=== PATIENT | male | born 1960 | race Caucasian/White ===

== ENCOUNTER 2020-06-30 14:10 | Inpatient (IN) | payer OTHER ==
[2020-06-30 18:40] VITALS: BMI 23.0
--- NOTE | 2020-06-30 18:51 | HP ---
"CIWA Score Nausea/Vomitin-No Nausea/No Vomiting Muscle Tremors: None Anxiety: 4-Mod. Anxious/Guarded Agitation: 3 Paroxysmal Sweats: 3 (Increased facial moisture) Orientation: 1-Uncertain about Date Tacttile Disturbances: 0-None Auditory Disturbances: 1-Very Mild (Whispery voices) Visual Disturbances: 1-Very Mild Sensitivity Headache: 0-None Present CIWA-Ar Total Score: 13 - Admission Criteria OASAS Guidelines: Admission for Medically Managed Detox: Requires at least one of the followin. CIWA greater than 12 2. Seizures within the past 24 hours 3. Delirium tremens within the past 24 hours 4. Hallucinations within the past 24 hours 5. Acute intervention needed for co occurring medical disorder 6. Acute intervention needed for co occurring psychiatric disorder 7. Severe withdrawal that cannot be handled at a lower level of care (continued vomiting, continued diarrhea, abnormal vital signs) requiring intravenous medication and/or fluids 8. Patient presents the following: CIWA greater than 12 Admission Criteria Met: Admission criteria met Admission ROS S - [facility] Chief Complaint: Here to try to stop using heroin, cocaine and drinking. Allergies/Adverse Reactions: Allergies Allergy/AdvReac Type Severity Reaction Status Date / Time No Known Allergies Allergy Verified 06/30/20 21:12 History of Present Illness: 60 yo presents w/ alcohol withdrawal seeking detox. First admission to [facility]. PARISH: 0.0 UTox: + SONJA/FEN/MOP/MTD Denies overdoses or seizures. Heroin use began at age 25. Currently using 4 bags/day/IV. Last used 06/29/20. On methadone 140 mg PO Daily. On VIP MMTP. LDM today. Denies sharing needles or works. Has a Narcan kit @ home and someone knows how to use. Alcohol use began at age 60. Has been drinking 4-6 16 oz beers/day x 3 months. Last drink about 9 a.m. Cocaine use began at age 59. Currently uses 4-5 $20 /day. Uses IV. Nicotine use began at age 27. Smokes 1 PPD. PMHx: Asthma - last exacerbation 2 weeks ago - on albuterol MDI; HTN - on Lisinopril; Slow heart beat. Heart Murmur. Elevated lipids; Prostate problems (R) ankle pain (uses a cane) MHHx: Occ hears voices - whispers. Anxiety/Panic attacks. Insomnia. Depression. - Does not see a MH provider. Denies thoughts of harming self or others. SHx: Undomiciled. Unemployed. Denies legal issues. Search Terms: Luis A Chavez, 1960 Search Date: 06/30/2020 20:41:17 PM The Drug Utilization Report below displays all of the controlled substance prescriptions, if any, that your patient has filled in the last twelve months. The information displayed on this report is compiled from pharmacy submissions to the Department, and accurately reflects the information as submitted by the pharmacies. This report was requested by: Danni Quintero | Reference #: [id number] There are no results for the search terms that you entered. Exam Limitations: No Limitations - Ebola screening Have you traveled outside of the country in the last 21 days: No (Hx COVID - 3 months ago) Have you had contact with anyone from an Ebola affected area: No Have you been sick,other than usual withdrawal symptoms: No Do you have a fever: No - Review of Systems Constitutional: Diaphoresis, Changes in sleep (Difficult falling asleep - no meds), Unintentional Wgt. Loss EENT: reports: Blurred Vision, Dental Problems (Broken teeth - chews and swallows ok.) Respiratory: reports: SOB with Exertion Cardiac: reports: Irregular Heart Rate (States told had irregular heart beat - slow heart beat.) GI: reports: Constipated (Last BM ) : reports: Other (States has prostate problems. Difficulty starting flow - encouraged to f/u when discharged. Verbalizes an understanding.) Musculoskeletal: reports: Back Pain (Upper and mid-back triggered by certain movements.), Joint Pain ((R) ankle pain - hx fracture - 2 yrs ago) Integumentary: reports: No Symptoms Reported Neuro: reports: No Symptoms reported Endocrine: reports: Increased Thirst Hematology: reports: No Symptoms Reported Psychiatric: reports: Judgement Intact, Agitated, Anxious (Occ panic attacks.), Depressed ( Denies thoughts of harming self or others.) Patient History - PPD History Previous Implant?: Yes Documented Results: Negative w/o proof Implanted On Prior [facility] Admission?: No PPD to be Administered?: Yes - Smoking Cessation Smoking history: Current every day smoker Have you smoked in the past 12 months: Yes Aproximately how many cigarettes per day: 20 Hx Chewing Tobacco Use: No Initiated information on smoking cessation: Yes 'Breaking Loose' booklet given: 06/30/20 - Substance & Tx. History Hx Alcohol Use: Yes Hx Substance Use: Yes Substance Use Type: Alcohol, Cocaine, Heroin Hx Substance Use Treatment: Yes (detox, rehab, Currently on MMTP) - Substances abused Heroin Substance route: Injection Frequency: Daily Amount used: 4 to 5 bags Age of first use: 28 Date of last use: 06/30/20 Cocaine Substance route: Injection Frequency: Daily Amount used: 3 to 4 20 ' Age of first use: 56 Date of last use: 06/29/20 Alcohol Substance route: Oral Frequency: Daily Amount used: 5 to 6 cans of beer Age of first use: 59 Date of last use: 06/30/20 Admission Physical Exam [facility] - Vital Signs Vital Signs: Vital Signs - 24 hr 06/30/20 17:28 Temperature 97.7 F Pulse Rate 45 L Respiratory 16 Rate Blood Pressure 111/66 - Physical General Appearance: Yes: Nourished, Mild Distress, Sweating (Increased facial moisture), Anxious HEENTM: Yes: EOMI, Hearing grossly Normal, Normocephalic, Normal Voice, STEPHANIE (Pupils = 2 mm), Pharynx Normal Respiratory: Yes: Lungs Clear (Pulse Ox = 99%), Normal Breath Sounds, No Respiratory Distress Neck: Yes: No masses,lesions,Nodules, Supple Breast: Yes: Breast Exam Deferred Cardiology: Yes: S1, S2, Bradycardia (HR: 42. Denies CP/SOB/Vertigo/Edema) Abdominal: Yes: Normal Bowel Sounds, Non Tender, Flat, Soft Genitourinary: Yes: Within Normal Limits Back: Yes: Normal Inspection Musculoskeletal: Yes: full range of Motion, Gait Steady, Joint swelling ((R) ankle w/ enlarged outer malleolus) Extremities: Yes: Normal Capillary Refill Neurological: Yes: explosive technician II-XII NML intact, Alert, Motor Strength 5/5 Integumentary: Yes: Normal Color, Warm, Moist (Increased facial moisture), Track Duran (Multiple track duran bothe antecubital areas w/o increased warmth or erythema) Lymphatic: Yes: Within Normal Limits - Diagnostic (1) Alcohol dependence with withdrawal, uncomplicated Current Visit: Yes Status: Acute (2) Methadone maintenance therapy patient Current Visit: Yes Status: Chronic Comment: On methadone maintenance - consider dose decrease because of prolonged QTc Continues to uses illicit opiates IV (3) IVDU (intravenous drug user) Current Visit: Yes Status: Chronic (4) Prolonged Q-T interval on ECG Current Visit: Yes Status: Acute (5) Cocaine dependence, uncomplicated Current Visit: Yes Status: Chronic (6) Nicotine dependence, unspecified, uncomplicated Current Visit: Yes Status: Chronic Qualifiers: Nicotine product type: cigarettes Qualified Code(s): F17.210 - Nicotine dependence, cigarettes, uncomplicated (7) History of asthma Current Visit: Yes Status: Chronic (8) HTN (hypertension) Current Visit: Yes Status: Chronic Qualifiers: Hypertension type: unspecified Qualified Code(s): I10 - Essential (primary) hypertension (9) H/O elevated lipids Current Visit: Yes Status: Chronic (10) History of fracture of ankle Current Visit: Yes Status: Chronic Comment: (R) ankle tenderness (11) Bradycardia Current Visit: Yes Status: Chronic Comment: w/o associated symptoms Cleared for Admission [facility] - Detox or Rehab [facility] Level of Care: Medically Managed Detox Regimen/Protocol: Librium Claeared for Rehab Admission: No Inpatient Rehab Admission - Rehab Decision to Admit Inpatient rehab admission?: No"
[2020-06-30] MEDS ORDERED: METHOCARBAMOL 500 MG TABLET PO PRN (21:21)
[2020-06-30] MEDS ORDERED: ACETAMINOPHEN 325 MG TABLET (FP) PO PRN ×2 (21:21)
[2020-06-30] MEDS ORDERED: IBUPROFEN 400 MG TABLET (FP) PO PRN (21:21)
[2020-06-30] MEDS ORDERED: NICOTINE POLACRILEX 2 MG GUM BUC PRN (21:21)
[2020-06-30] MEDS ORDERED: MAGNESIUM HYDROX 2400MG/30ML ORAL SUSPENSION 30 ML CUP PO PRN (21:21)
[2020-06-30] MEDS ORDERED: ONDANSETRON *ODT* 4 MG TABLET SL ONE (21:21)
[2020-06-30] MEDS ORDERED: chlordiazePOXIDE HCL 10 MG CAPSULE PO PRN (21:21)
[2020-06-30] MEDS ORDERED: BISMUTH SUBSALICYLATE 524 MG/30 ML UD PO PRN (21:21)
[2020-06-30] MEDS ORDERED: MENTHOL/PHENOL 1 EACH UD MM PRN (21:21)
[2020-06-30] MEDS ORDERED: MAGNESIUM CITRATE 300 ML BOTTLE PO PRN (21:21)
[2020-06-30] MEDS: MELATONIN 5 MG TABLETS PO SCH (22:39)
[2020-06-30] MEDS: THIAMINE HCL 100 MG TABLET (FP) PO SCH (22:40)
[2020-06-30] MEDS: chlordiazePOXIDE HCL 25 MG CAPSULE PO SCH (22:40)
[2020-07-01] MEDS: chlordiazePOXIDE HCL 25 MG CAPSULE PO SCH ×3 (06:06→22:35)
[2020-07-01] MEDS ORDERED: METHADONE 120 MG, METHADONE 20 MG PO ONE (09:53)
[2020-07-01] MEDS ORDERED: METHADONE HCL 10 MG TABLET PO ONE (09:53)
[2020-07-01] MEDS ORDERED: METHADONE HCL 40 MG DISPERSABLE TABLET ONE (11:08)
[2020-07-01] MEDS ORDERED: METHADONE HCL 10 MG TABLET ONE (11:08)
[2020-07-01] MEDS: BUDESONIDE/FORMETEROL FUMARATE 160/4.5 mcg INHALER IH SCH ×2 (11:09→22:35)
[2020-07-01] MEDS: PRENATAL VITAMINS W/ FOLIC ACID TABLET (FP) PO SCH (11:10)
[2020-07-01] MEDS: LISINOPRIL 20 MG TABLET (FP) PO SCH (11:10)
[2020-07-01] MEDS: NICOTINE 14 MG/24 HOURS TOPICAL PATCH TD SCH (11:10)
--- NOTE | 2020-07-01 11:27 | PN ---
S CIWA - CIWA Score Nausea/Vomitin-No Nausea/No Vomiting Muscle Tremors: 3 Anxiety: 2 Agitation: 2 Paroxysmal Sweats: 2 Orientation: 0-Oriented Tacttile Disturbances: 0-None Auditory Disturbances: 0-None Visual Disturbances: 0-None Headache: 0-None Present CIWA-Ar Total Score: 9 BHS Progress Note (SOAP) Subjective: irritable sweats interrupted sleep Objective: 07/01/20 11:26 Vital Signs Temperature 97.1 F L 07/01/20 05:34 Pulse Rate 49 L 07/01/20 05:34 Respiratory Rate 20 07/01/20 05:34 Blood Pressure 143/60 07/01/20 05:34 O2 Sat by Pulse Oximetry (%) 98 07/01/20 05:34 labs pending aaox3 ambulating no acute distress Assessment: 07/01/20 11:27 withdrawals Plan: continue detox pending labs
[2020-07-01 11:57] LABS: HEMATOCRIT 39.6 % (35.4-49); HEMOGLOBIN 13.1 GM/dL (11.7-16.9); MCH 29.4 pg (25.7-33.7); MEAN CELL VOLUME 89.3 fl (80-96); MEAN PLT VOLUME 9.7 fl (7.5-11.1); PLATELET COUNT 161 K/MM3 (134-434); RBC 4.44 M/mm3 (4.00-5.60); RDW 13.4 % (11.9-15.9); WHITE BLOOD COUNT 4.6 K/mm3 (4.0-10.0)
[2020-07-01 12:11] LABS: BILIRUBIN,TOTAL 0.3 mg/dL (0.2-1); BLOOD UREA NITROGEN 16.2 mg/dL (7-18); CALCIUM 8.7 mg/dL (8.5-10.1); POTASSIUM 3.8 mmol/L (3.5-5.1); TOT PROT 6.5 g/dl (6.4-8.2)
--- NOTE | 2020-07-01 14:56 | EKG ---
Test Reason : Blood Pressure : / mmHG Vent. Rate : 040 BPM Atrial Rate : 040 BPM P-R Int : 166 ms QRS Dur : 094 ms QT Int : 524 ms P-R-T Axes : 055 -01 055 degrees QTc Int : 427 ms MARKED SINUS BRADYCARDIA ABNORMAL ECG NO PREVIOUS ECGS AVAILABLE Confirmed by MENDOZA KIDD MD ([id number]) on 07/01/2020 2:56:27 PM Referred By: Confirmed By:MENDOZA KIDD MD
[2020-07-01] MEDS: MAG HYDROX/AL HYDROX/SIMETH 30 ML UNIT-DOSE CUP PO PRN (19:59)
[2020-07-01] MEDS: ALBUTEROL SO4 HFA INHALER IH PRN (20:14)
[2020-07-01] MEDS: MELATONIN 5 MG TABLETS PO SCH (22:35)
[2020-07-01] MEDS: THIAMINE HCL 100 MG TABLET (FP) PO SCH (22:35)
[2020-07-01] MEDS: ATORVASTATIN CA 10 MG TABLET (FP) PO SCH (22:35)
[2020-07-02] MEDS ORDERED: METHADONE HCL 10 MG TABLET ONE (04:11)
[2020-07-02] MEDS ORDERED: METHADONE HCL 40 MG DISPERSABLE TABLET ONE (04:12)
[2020-07-02] MEDS: chlordiazePOXIDE 5 MG CAPSULE PO SCH ×3 (05:38→22:10)
[2020-07-02] MEDS: METHADONE 120 MG, METHADONE 20 MG PO SCH (05:38)
[2020-07-02] MEDS: ALBUTEROL SO4 HFA INHALER IH PRN ×2 (05:41→22:13)
[2020-07-02] MEDS ORDERED: METHADONE HCL 40 MG DISPERSABLE TABLET PO SCH (06:00)
--- NOTE | 2020-07-02 10:25 | PN ---
[facility] CIWA - CIWA Score Nausea/Vomitin-No Nausea/No Vomiting Muscle Tremors: 1-None Visible, but [place] Anxiety: 1-Mildly Anxious Agitation: 1-Slight > Activity Paroxysmal Sweats: 1-Minimal Palms Moist Orientation: 0-Oriented Tacttile Disturbances: 0-None Auditory Disturbances: 0-None Visual Disturbances: 0-None Headache: 0-None Present CIWA-Ar Total Score: 4 BHS Progress Note (SOAP) Subjective: poor appetite i want ensure restless Objective: 07/02/20 10:25 Vital Signs Temperature 97.3 F L 07/02/20 05:30 Pulse Rate 43 L 07/02/20 05:30 Respiratory Rate 20 07/02/20 05:30 Blood Pressure 136/75 07/02/20 05:30 O2 Sat by Pulse Oximetry (%) 97 07/02/20 05:30 Laboratory Tests 07/01/20 07/01/20 07/01/20 08:05 08:05 08:05 WBC 4.6 RBC 4.44 Hgb 13.1 Hct 39.6 MCV 89.3 MCH 29.4 MCHC 33.0 RDW 13.4 Plt Count 161 MPV 9.7 Sodium 141 Potassium 3.8 Chloride 108 H Carbon Dioxide 28 Anion Gap 5 L BUN 16.2 Creatinine 1.0 Est GFR (CKD-EPI)AfAm 95.73 Est GFR (CKD-EPI)NonAf 82.60 Random Glucose 126 H Calcium 8.7 Total Bilirubin 0.3 AST 35 ALT 30 Alkaline Phosphatase 68 Total Protein 6.5 Albumin 3.0 L Syphilis Serology Non-reactive aaox3 ambulating no acute distress Assessment: 07/02/20 10:25 withdrawals Plan: continue detox ensure plus BID
[2020-07-02] MEDS: NICOTINE 14 MG/24 HOURS TOPICAL PATCH TD SCH (10:41)
[2020-07-02] MEDS: PRENATAL VITAMINS W/ FOLIC ACID TABLET (FP) PO SCH (10:42)
[2020-07-02] MEDS: LISINOPRIL 20 MG TABLET (FP) PO SCH (10:42)
[2020-07-02] MEDS: BUDESONIDE/FORMETEROL FUMARATE 160/4.5 mcg INHALER IH SCH ×2 (10:42→23:02)
[2020-07-02] MEDS: MAG HYDROX/AL HYDROX/SIMETH 30 ML UNIT-DOSE CUP PO PRN (18:36)
[2020-07-02] MEDS: ATORVASTATIN CA 10 MG TABLET (FP) PO SCH (22:10)
[2020-07-02] MEDS: MELATONIN 5 MG TABLETS PO SCH (22:11)
[2020-07-02] MEDS: THIAMINE HCL 100 MG TABLET (FP) PO SCH (22:11)
[2020-07-03] MEDS ORDERED: chlordiazePOXIDE HCL 10 MG CAPSULE PO PRN
[2020-07-03] MEDS ORDERED: METHADONE HCL 40 MG DISPERSABLE TABLET ONE (04:56)
[2020-07-03] MEDS ORDERED: METHADONE HCL 10 MG TABLET ONE (04:56)
[2020-07-03] MEDS: chlordiazePOXIDE HCL 10 MG CAPSULE PO SCH ×3 (05:37→21:56)
[2020-07-03] MEDS: METHADONE 120 MG, METHADONE 20 MG PO SCH (05:40)
[2020-07-03] MEDS: BUDESONIDE/FORMETEROL FUMARATE 160/4.5 mcg INHALER IH SCH ×2 (10:51→22:00)
[2020-07-03] MEDS: PRENATAL VITAMINS W/ FOLIC ACID TABLET (FP) PO SCH (10:51)
[2020-07-03] MEDS: NICOTINE 14 MG/24 HOURS TOPICAL PATCH TD SCH (10:51)
[2020-07-03] MEDS: LISINOPRIL 20 MG TABLET (FP) PO SCH (10:51)
--- NOTE | 2020-07-03 12:56 | PN ---
[facility] CIWA - CIWA Score Nausea/Vomitin-No Nausea/No Vomiting Muscle Tremors: None Anxiety: 1-Mildly Anxious Agitation: 0-Normal Activity Paroxysmal Sweats: 2 Orientation: 0-Oriented Tacttile Disturbances: 0-None Auditory Disturbances: 0-None Visual Disturbances: 0-None Headache: 0-None Present CIWA-Ar Total Score: 3 BHS Progress Note (SOAP) Subjective: Complaints of mild sweating and anxiety. Objective: 07/03/20 12:54 Vital Signs 07/03/20 07/03/20 05:32 09:10 Temperature 97.3 F L 98.6 F Pulse Rate 56 L 50 L Respiratory 18 18 Rate Blood Pressure 170/74 147/77 O2 Sat by Pulse 98 98 Oximetry (%) Laboratory Last Values WBC 4.6 K/mm3 (4.0-10.0) 07/01/20 08:05 RBC 4.44 M/mm3 (4.00-5.60) 07/01/20 08:05 Hgb 13.1 GM/dL (11.7-16.9) 07/01/20 08:05 Hct 39.6 % (35.4-49) 07/01/20 08:05 MCV 89.3 fl (80-96) 07/01/20 08:05 MCH 29.4 pg (25.7-33.7) 07/01/20 08:05 MCHC 33.0 g/dl (32.0-35.9) 07/01/20 08:05 RDW 13.4 % (11.9-15.9) 07/01/20 08:05 Plt Count 161 K/MM3 (134-434) 07/01/20 08:05 MPV 9.7 fl (7.5-11.1) 07/01/20 08:05 Sodium 141 mmol/L (136-145) 07/01/20 08:05 Potassium 3.8 mmol/L (3.5-5.1) 07/01/20 08:05 Chloride 108 mmol/L (98-107) H 07/01/20 08:05 Carbon Dioxide 28 mmol/L (21-32) 07/01/20 08:05 Anion Gap 5 MMOL/L (8-16) L 07/01/20 08:05 BUN 16.2 mg/dL (7-18) 07/01/20 08:05 Creatinine 1.0 mg/dL (0.55-1.3) 07/01/20 08:05 Est GFR (CKD-EPI)AfAm 95.73 07/01/20 08:05 Est GFR (CKD-EPI)NonAf 82.60 07/01/20 08:05 Random Glucose 126 mg/dL (74-106) H 07/01/20 08:05 Calcium 8.7 mg/dL (8.5-10.1) 07/01/20 08:05 Total Bilirubin 0.3 mg/dL (0.2-1) 07/01/20 08:05 AST 35 U/L (15-37) 07/01/20 08:05 ALT 30 U/L (13-61) 07/01/20 08:05 Alkaline Phosphatase 68 U/L (45-117) 07/01/20 08:05 Total Protein 6.5 g/dl (6.4-8.2) 07/01/20 08:05 Albumin 3.0 g/dl (3.4-5.0) L 07/01/20 08:05 Syphilis Serology Non-reactive (NONREACTIVE) 07/01/20 08:05 COVID-19 ([facility]) Not detected (Not Detected) 06/30/20 21:45 Labs noted. Assessment: 07/03/20 12:54 Alert and oriented x3, in no acute respiratory distress. Full ROM, ambulating in hallway with cane. Skin warm to touch with no lesions noted. Mild withdrawal symptoms. Plan: Continue detox protocol D/C in AM
[2020-07-03] MEDS: THIAMINE HCL 100 MG TABLET (FP) PO SCH (21:56)
[2020-07-03] MEDS: ATORVASTATIN CA 10 MG TABLET (FP) PO SCH (21:56)
[2020-07-03] MEDS: MELATONIN 5 MG TABLETS PO SCH (21:56)
[2020-07-04] MEDS ORDERED: METHADONE HCL 10 MG TABLET ONE (03:31)
[2020-07-04] MEDS ORDERED: METHADONE HCL 40 MG DISPERSABLE TABLET ONE (03:32)
[2020-07-04] MEDS ORDERED: chlordiazePOXIDE HCL 10 MG CAPSULE PO ONE (05:00)
[2020-07-04] MEDS: METHADONE 120 MG, METHADONE 20 MG PO SCH (05:43)
[2020-07-04] MEDS ORDERED: MASKS NR ONE (07:49)
[2020-07-04] MEDS: BUDESONIDE/FORMETEROL FUMARATE 160/4.5 mcg INHALER IH SCH (10:19)
[2020-07-04] MEDS: LISINOPRIL 20 MG TABLET (FP) PO SCH (10:19)
[2020-07-04] MEDS: PRENATAL VITAMINS W/ FOLIC ACID TABLET (FP) PO SCH (10:19)
[2020-07-04] MEDS: NICOTINE 14 MG/24 HOURS TOPICAL PATCH TD SCH (10:19)
--- NOTE | 2020-07-04 13:55 | DS ---
[facility] Detox Discharge Summary Admission Date: 06/30/20 - History Present History: Alcohol Dependence, Cocaine Dependence - Physical Exam Results Vital Signs: Vital Signs Temperature 97.3 F L 07/04/20 08:45 Pulse Rate 51 L 07/04/20 08:45 Respiratory Rate 16 07/04/20 08:45 Blood Pressure 157/72 07/04/20 08:45 O2 Sat by Pulse Oximetry (%) 97 07/04/20 08:45 Ambulatory Orders Atorvastatin Calcium 10 mg PO DAILY 06/30/20 Multivit,Calc,Mins/Iron/Folic [Therapeutic-M Tablet] 1 tablet PO DAILY 06/30/20 Albuterol Sulfate Inhaler - [Ventolin HFA Inhaler -] 2 inhaler PO Q4HWA PRN #1 inhaler 07/04/20 Budesonide/Formeterol Fumarate [SYMBICORT 160/4.5mcg -] 1 inhaler PO BID #1 inhaler 07/04/20 Lisinopril [Prinivil -] 40 mg PO DAILY #14 tablet 07/04/20 Laboratory Tests 06/30/20 07/01/20 07/01/20 21:45 08:05 08:05 WBC 4.6 RBC 4.44 Hgb 13.1 Hct 39.6 MCV 89.3 MCH 29.4 MCHC 33.0 RDW 13.4 Plt Count 161 MPV 9.7 Sodium Potassium Chloride Carbon Dioxide Anion Gap BUN Creatinine Est GFR (CKD-EPI)AfAm Est GFR (CKD-EPI)NonAf Random Glucose Calcium Total Bilirubin AST ALT Alkaline Phosphatase Total Protein Albumin Syphilis Serology Non-reactive COVID-19 ([facility]) Not detected 07/01/20 08:05 WBC RBC Hgb Hct MCV MCH MCHC RDW Plt Count MPV Sodium 141 Potassium 3.8 Chloride 108 H Carbon Dioxide 28 Anion Gap 5 L BUN 16.2 Creatinine 1.0 Est GFR (CKD-EPI)AfAm 95.73 Est GFR (CKD-EPI)NonAf 82.60 Random Glucose 126 H Calcium 8.7 Total Bilirubin 0.3 AST 35 ALT 30 Alkaline Phosphatase 68 Total Protein 6.5 Albumin 3.0 L Syphilis Serology COVID-19 ([facility]) ROS: DENIES CRAVINGS, SHAKES AND SWEATS PE ALERT AND ORIENTED X 3 SKIN WARM AND DRY EOMS INTACT BL EXT FULL ROM, AMB AD JACQUELINE NO TREMORS A/P ETOH DEPENDENCE MMTP COCAINE DEPENDENCE MEDICALLY STABLE FOR D/C - Treatment Hospital Course: Detox Protocol Followed, Detoxed Safely, Responded well, Discharged Condition Good - Medication Discharge Medications: Ambulatory Orders Atorvastatin Calcium 10 mg PO DAILY 06/30/20 Multivit,Calc,Mins/Iron/Folic [Therapeutic-M Tablet] 1 tablet PO DAILY 06/30/20 Albuterol Sulfate Inhaler - [Ventolin HFA Inhaler -] 2 inhaler PO Q4HWA PRN #1 inhaler 07/04/20 Budesonide/Formeterol Fumarate [SYMBICORT 160/4.5mcg -] 1 inhaler PO BID #1 inhaler 07/04/20 Lisinopril [Prinivil -] 40 mg PO DAILY #14 tablet 07/04/20 - AMA Did Patient Leave Against Medical Advice: No
[2020-07-04 15:25] VITALS: BP 148/83; PULSE 54; TEMP 98.2
== END 2020-07-04 15:29 | disposition home or self-care (01) | DRG 773 ==
LOC: YASAS 14:10 → Y6N 20:47
PROVIDERS: ADMIT Allergy & Immunology; ATTEND Allergy & Immunology
PROC: HZ2ZZZZ Detoxification Services for Substance Abuse Treatment (ICD-10-PCS; principal; 2020-06-30)
DX: F10.230 Alcohol dependence with withdrawal, uncomplicated (principal); F11.20 Opioid dependence, uncomplicated; F14.20 Cocaine dependence, uncomplicated; F17.210 Nicotine dependence, cigarettes, uncomplicated; I10 Essential (primary) hypertension; J45.909 Unspecified asthma, uncomplicated; I45.81 Long QT syndrome; R00.1 Bradycardia, unspecified; Z86.19 Personal history of other infectious and parasitic diseases
CPT/HCPCS: 36415; 80053; 85027; 86780; 93005; 93010; U0003

== ENCOUNTER 2020-07-09 11:49 | Inpatient (IN) | payer OTHER ==
--- NOTE | 2020-07-09 12:31 | BHS.RME ---
Substance Use & Tx History - Substance Use History Alcohol Substance amount: 6-8 cans of 16 ounce beer Frequency of use: Daily Substance route: Oral Date of Last Use: 06/30/20 Heroin Substance amount: 4 bags Frequency of use: Daily Substance route: Injection (ex: intravenous or skin popping) Date of Last Use: 06/30/20 Cocaine-Crack Substance amount: $100-120 Frequency of use: Daily Substance route: Injection (ex: intravenous or skin popping) Date of Last Use: 07/07/20 Physical/Psych/Mental Status - Behavior General Behavior: Increased activity (restlessness, agitation) Eye Contact: Normal - Cooperativeness Cooperativeness: Cooperative - Thinking Thought Processes: Tight Thought content: Future oriented Perceptions: Hallucinations (auditory, visual, olfactory) - Physical Health Problems Is patient presently having any pain?: Yes (right foot, hx fracture last year) Does patient presently have any injuries (include location): No Does patient currently have a fever: No COWS - Scale Resting Pulse: 0= [place] 80 or Below Sweatin= No chills or Flushing Restless Observation: 0= Sits Still Pupil Size: 0= Normal to Room Light Bone or Joint Aches: 1= Mild Discomfort Runny Nose/ Eye Tearin= None GI Upset > 30mins: 0= None Tremor Observation: 0= None Yawning Observation: 0= None Anxiety or Irritability: 1=Feels Anxious/Irritable Goose Flesh Skin: 0=Smooth Skin COWS Score: 2 CIWA Nausea/Vomitin-No Nausea/No Vomiting Muscle Tremors: None Anxiety: 1-Mildly Anxious Agitation: 0-Normal Activity Paroxysmal Sweats: No Perspiration Orientation: 2-Disoriented Date<2 days Tacttile Disturbances: 0-None Auditory Disturbances: 0-None Visual Disturbances: 0-None Headache: 0-None Present CIWA-Ar Total Score: 3
--- NOTE | 2020-07-09 13:54 | HP ---
COWS - Scale Resting Pulse: 0= [place] 80 or Below Sweatin= No chills or Flushing Restless Observation: 0= Sits Still Pupil Size: 0= Normal to Room Light Bone or Joint Aches: 1= Mild Discomfort Runny Nose/ Eye Tearin= None GI Upset > 30mins: 0= None Tremor Observation: 0= None Yawning Observation: 0= None Anxiety or Irritability: 1=Feels Anxious/Irritable Goose Flesh Skin: 0=Smooth Skin COWS Score: 2 CIWA Score Nausea/Vomitin-No Nausea/No Vomiting Muscle Tremors: None Anxiety: 1-Mildly Anxious Agitation: 0-Normal Activity Paroxysmal Sweats: No Perspiration Orientation: 2-Disoriented Date<2 days Tacttile Disturbances: 0-None Auditory Disturbances: 0-None Visual Disturbances: 0-None Headache: 0-None Present CIWA-Ar Total Score: 3 - Admission Criteria OASAS Guidelines: Admission for Medically Managed Detox: Requires at least one of the followin. CIWA greater than 12 2. Seizures within the past 24 hours 3. Delirium tremens within the past 24 hours 4. Hallucinations within the past 24 hours 5. Acute intervention needed for co occurring medical disorder 6. Acute intervention needed for co occurring psychiatric disorder 7. Severe withdrawal that cannot be handled at a lower level of care (continued vomiting, continued diarrhea, abnormal vital signs) requiring intravenous medication and/or fluids 8. Admitting History and Physical - Admission Chief Complaint: Patient is a 60 year old male with history of COPD, asthma, hypertension, bradycardia, Hepatitis C (treated 2014), ?cholecystitis, alcohol use disorder, opiate use disorder, cocaine dependence, nicotine dependence, presents for rehab. History of Present Illness: Patient is a 60 year old male with history of COPD, asthma, hypertension, Hepatitis C (treated 2014), ?cholecystitis, alcohol use disorder, opiate use disorder, cocaine dependence, nicotine dependence, presents for rehab. PMH: COPD, asthma, bradycardia, hypertension, Hepatitis C, ?cholecystitis PSH: denies Social: homeless Psych: clausterphobia, auditory hallucination, depression Legal: denies - Substance Use History Alcohol Substance amount: 6-8 cans of 16 ounce beer Frequency of use: Daily Substance route: Oral Date of Last Use: 06/30/20 Heroin Substance amount: 4 bags Frequency of use: Daily Substance route: Injection (ex: intravenous or skin popping) Date of Last Use: 06/30/20 Cocaine-Crack Substance amount: $100-120 Frequency of use: Daily Substance route: Injection (ex: intravenous or skin popping) Date of Last Use: 07/07/20 History Source: Patient Limitations to Obtaining History: No Limitations - Smoking History Smoking history: Current every day smoker Have you smoked in the past 12 months: Yes Aproximately how many cigarettes per day: 20 - Alcohol/Substance Use Hx Alcohol Use: Yes Admission [facility] Chief Complaint: Patient is a 60 year old male with history of COPD, asthma, hypertension, Hepatitis C (treated 2014), ?cholecystitis, alcohol use disorder, opiate use disorder, cocaine dependence, nicotine dependence, presents for rehab. Allergies/Adverse Reactions: Allergies Allergy/AdvReac Type Severity Reaction Status Date / Time No Known Allergies Allergy Verified 06/30/20 21:12 Exam Limitations: No Limitations - Ebola screening Have you traveled outside of the country in the last 21 days: No Have you been sick,other than usual withdrawal symptoms: No Do you have a fever: No - Review of Systems Constitutional: No Symptoms Reported EENT: reports: Hearing Loss (left ear, chronic). denies: Blurred Vision Respiratory: denies: Cough, Shortness of Breath Cardiac: denies: Chest Pain, Palpitations GI: denies: Nausea, Vomiting, Abdominal cramping : denies: Burning, Dysuria Musculoskeletal: reports: Back Pain (chronic), Other (left foot/ ankle pain from prior fracture) Integumentary: denies: Bruising, Rash Neuro: denies: Headache, Numbness, Weakness Hematology: denies: Blood Clots, Easy Bleeding Psychiatric: reports: Anxious, Depressed, other (denies suicidal, homicidal id eation) Patient History - Patient Medical History Hx Asthma: Yes Hx Chronic Obstructive Pulmonary Disease (COPD): Yes Hx Cardiac Disorders: Yes Hx Hypertension: No Hx Seizures: No Hx Diabetes: No Hx Gastrointestinal Disorders: No Hx Genitourinary Disorders: No Hx Sexually Transmitted Disorders: No Hx Renal Disease (ESRD): No Hx Depression: No Hx Suicide Attempt: No Hx Schizophrenia: No - Patient Surgical History Past Surgical History: No Hx Neurologic Surgery: No Hx Cataract Extraction: No Hx Cardiac Surgery: No Hx Lung Surgery: No Hx Breast Surgery: No Hx Breast Biopsy: No Hx Abdominal Surgery: No Hx Appendectomy: No Hx Cholecystectomy: No Hx Genitourinary Surgery: No Hx Section: No Hx Orthopedic Surgery: No - PPD History Date: 07/02/20 - Reproductive History Patient is a Female of Child Bearing Age (11 -55 yrs old): No - Smoking Cessation Smoking history: Current every day smoker Have you smoked in the past 12 months: Yes Aproximately how many cigarettes per day: 20 Hx Chewing Tobacco Use: No Initiated information on smoking cessation: Yes 'Breaking Loose' booklet given: 07/09/20 - Substance & Tx. History Hx Alcohol Use: Yes Hx Substance Use: Yes Substance Use Type: Alcohol, Cocaine, Heroin Admission Physical Exam [facility] - Physical General Appearance: Yes: No Apparent Distress, Irritable, Anxious HEENTM: Yes: Hearing grossly Normal, Normocephalic, STEPHANIE Respiratory: Yes: Lungs Clear, Normal Breath Sounds, No Respiratory Distress, No Accessory Muscle Use Neck: Yes: Supple Breast: Yes: Breast Exam Deferred Cardiology: Yes: Regular Rhythm, Regular Rate, S1, S2 Abdominal: Yes: Normal Bowel Sounds, Non Tender, Flat, Soft Musculoskeletal: Yes: Within Normal Limits, full range of Motion Extremities: Yes: Within Normal Limits, Normal Range of Motion Integumentary: Yes: Dry, Warm - Diagnostic (1) Alcohol dependence with withdrawal, uncomplicated Current Visit: Yes Status: Acute (2) Bradycardia Current Visit: No Status: Chronic Comment: w/o associated symptoms (3) Cocaine dependence, uncomplicated Current Visit: Yes Status: Acute (4) HTN (hypertension) Current Visit: No Status: Chronic Qualifiers: Hypertension type: unspecified Qualified Code(s): I10 - Essential (primary) hypertension (5) History of asthma Current Visit: No Status: Chronic (6) History of fracture of ankle Current Visit: No Status: Chronic Comment: (R) ankle tenderness (7) IVDU (intravenous drug user) Current Visit: Yes Status: Chronic (8) Methadone maintenance therapy patient Current Visit: No Status: Chronic Comment: On methadone maintenance - consider dose decrease because of prolonged QTc Continues to uses illicit opiates IV (9) Nicotine dependence, unspecified, uncomplicated Current Visit: No Status: Chronic Qualifiers: Nicotine product type: cigarettes Qualified Code(s): F17.210 - Nicotine dependence, cigarettes, uncomplicated Cleared for Admission [facility] - Detox or Rehab [facility] Level of Care: Medically Supervised Claeared for Rehab Admission: Yes Screened but not Admitted - Documentation of Visit Screened but not Admitted: No Breathalyzer - Breathalyzer Breathalyzer: 0 Urine Drug Screen - Test Device Lot number: [id number] Expiration date: 06/29/22 - Control Is test valid?: Yes - Results Drug screen NEGATIVE: No Urine drug screen results: SONJA-Cocaine, MTD-Methadone, BZO-Benzodiazepines Inpatient Rehab Admission - Rehab Decision to Admit Inpatient rehab admission?: Yes - Initial Determination Are CD services needed?: Yes Free of communicable disease: Yes Not in need of hospitalization: Yes - Rehab Admission Criteria Previous failed treatment: Yes Poor recovery environment: Yes Comorbidities: Yes Lacks judgement: Yes Patient is meeting Inpatient Rehab admission criteria:: Yes
[2020-07-09] MEDS ORDERED: IBUPROFEN 400 MG TABLET (FP) PO PRN (14:00)
[2020-07-09] MEDS ORDERED: MAGNESIUM HYDROX 2400MG/30ML ORAL SUSPENSION 30 ML CUP PO PRN (14:00)
[2020-07-09] MEDS ORDERED: guaiFENesin 200 MG/10 ML 10 ML UNIT-DOSE CUPS PO PRN (14:00)
[2020-07-09] MEDS ORDERED: ACETAMINOPHEN 325 MG TABLET (FP) PO PRN (14:00)
[2020-07-09] MEDS ORDERED: hydrOXYzine PAMOATE 25 MG CAPSULE (FP) PO SCH (14:00)
[2020-07-09] MEDS ORDERED: LOPERAMIDE HCL 2 MG CAPSULE PO PRN (14:00)
[2020-07-09] MEDS ORDERED: P-EPHED 60MG/TRIPROLIDI 2.5MG TABLET PO PRN (14:00)
[2020-07-09] MEDS ORDERED: MAGNESIUM CITRATE 300 ML BOTTLE PO PRN (14:00)
[2020-07-09] MEDS ORDERED: MAG HYDROX/AL HYDROX/SIMETH 30 ML UNIT-DOSE CUP PO PRN (14:00)
[2020-07-09] MEDS ORDERED: ALBUTEROL SO4 HFA INHALER IH PRN ×2 (14:03→14:30)
[2020-07-09 14:35] VITALS: BMI 23.8
[2020-07-09] MEDS: NICOTINE 14 MG/24 HOURS TOPICAL PATCH TD SCH (15:23)
--- NOTE | 2020-07-09 15:32 | PN ---
Teaching Attending Note Name of Resident: Hector Arana ATTENDING PHYSICIAN STATEMENT I saw and evaluated the patient. I reviewed the resident's note and discussed the case with the resident. I agree with the resident's findings and plan as documented. SUBJECTIVE: OBJECTIVE: ASSESSMENT AND PLAN: 1. Completed detox 06/30 to 07/04: alcohol , here now for rehab 2. On Methadone maintenance 3. COVID antibody postive on 07/07, antigen negative on 07/07/20 Plan 1. Admit to Rehab.
[2020-07-09 16:47] LABS: HEMATOCRIT 40.9 % (35.4-49); HEMOGLOBIN 13.4 GM/dL (11.7-16.9); MCH 29.1 pg (25.7-33.7); MCHC 32.7 g/dl (32.0-35.9); MEAN CELL VOLUME 88.9 fl (80-96); MEAN PLT VOLUME 9.8 fl (7.5-11.1); PLATELET COUNT 183 K/MM3 (134-434); RDW 13.5 % (11.9-15.9); WHITE BLOOD COUNT 5.5 K/mm3 (4.0-10.0)
[2020-07-09 17:01] LABS: ALBUMIN 3.6 g/dl (3.4-5.0); BILIRUBIN,TOTAL 0.8 mg/dL (0.2-1); BLOOD UREA NITROGEN 17.6 mg/dL (7-18); CALCIUM 9.1 mg/dL (8.5-10.1); POTASSIUM 4.3 mmol/L (3.5-5.1); TOT PROT 7.6 g/dl (6.4-8.2)
[2020-07-09 17:02] LABS: SICKLE CELL SCREEN NEGATIVE (NEGATIVE)
[2020-07-09] MEDS: MELATONIN 5 MG TABLETS PO SCH (21:14)
[2020-07-09] MEDS: BUDESONIDE/FORMETEROL FUMARATE 160/4.5 mcg INHALER IH SCH (21:15)
[2020-07-09] MEDS: THIAMINE HCL 100 MG TABLET (FP) PO SCH (21:15)
[2020-07-09] MEDS ORDERED: BUDESONIDE/FORMETEROL FUMARATE 160/4.5 mcg INHALER IH SCH (22:00)
[2020-07-10] MEDS ORDERED: METHADONE HCL 10 MG TABLET PO SCH (06:00)
[2020-07-10] MEDS ORDERED: METHADONE HCL 10 MG TABLET ONE (06:16)
[2020-07-10] MEDS: METHADONE 120 MG, METHADONE 20 MG PO SCH (06:16)
[2020-07-10] MEDS ORDERED: METHADONE HCL 40 MG DISPERSABLE TABLET ONE (06:16)
[2020-07-10] MEDS: ATORVASTATIN CA 10 MG TABLET (FP) PO SCH (10:07)
[2020-07-10] MEDS: PRENATAL VITAMINS W/ FOLIC ACID TABLET (FP) PO SCH (10:07)
[2020-07-10] MEDS: NICOTINE 14 MG/24 HOURS TOPICAL PATCH TD SCH (10:07)
[2020-07-10] MEDS: LISINOPRIL 20 MG TABLET (FP) PO SCH (10:07)
[2020-07-10] MEDS: BUDESONIDE/FORMETEROL FUMARATE 160/4.5 mcg INHALER IH SCH ×2 (10:07→21:13)
[2020-07-10] MEDS: THIAMINE HCL 100 MG TABLET (FP) PO SCH (21:12)
[2020-07-10] MEDS: MELATONIN 5 MG TABLETS PO SCH (21:12)
[2020-07-11] MEDS ORDERED: METHADONE HCL 40 MG DISPERSABLE TABLET ONE (03:52)
[2020-07-11] MEDS ORDERED: METHADONE HCL 10 MG TABLET ONE (03:52)
[2020-07-11] MEDS: METHADONE 120 MG, METHADONE 20 MG PO SCH (06:10)
[2020-07-11] MEDS: BUDESONIDE/FORMETEROL FUMARATE 160/4.5 mcg INHALER IH SCH ×2 (09:56→21:28)
[2020-07-11] MEDS: LISINOPRIL 20 MG TABLET (FP) PO SCH (09:56)
[2020-07-11] MEDS: PRENATAL VITAMINS W/ FOLIC ACID TABLET (FP) PO SCH (09:56)
[2020-07-11] MEDS: ATORVASTATIN CA 10 MG TABLET (FP) PO SCH (09:56)
[2020-07-11] MEDS: NICOTINE 14 MG/24 HOURS TOPICAL PATCH TD SCH (09:57)
[2020-07-11 10:31] LABS: URINE APPEARANCE CLEAR; URINE BILIRUBIN NEGATIVE (NEGATIVE); URINE COLOR YELLOW; URINE GLUCOSE (UA) NEGATIVE (NEGATIVE); URINE KETONE NEGATIVE (NEGATIVE); URINE LEUK ESTERASE NEGATIVE (NEGATIVE); URINE NITRITE NEGATIVE (NEGATIVE); URINE PROTEIN NEGATIVE (NEGATIVE); URINE UROBILINOGEN 0.2 mg/dL (0.2-1.0)
[2020-07-11] MEDS: NICOTINE POLACRILEX 2 MG GUM BUC PRN (21:26)
[2020-07-11] MEDS: MELATONIN 5 MG TABLETS PO SCH (21:27)
[2020-07-11] MEDS: THIAMINE HCL 100 MG TABLET (FP) PO SCH (21:27)
[2020-07-12] MEDS ORDERED: METHADONE HCL 10 MG TABLET ONE (04:52)
[2020-07-12] MEDS ORDERED: METHADONE HCL 40 MG DISPERSABLE TABLET ONE (04:52)
[2020-07-12] MEDS: METHADONE 120 MG, METHADONE 20 MG PO SCH (06:04)
[2020-07-12] MEDS: BUDESONIDE/FORMETEROL FUMARATE 160/4.5 mcg INHALER IH SCH ×2 (10:18→21:42)
[2020-07-12] MEDS: NICOTINE 14 MG/24 HOURS TOPICAL PATCH TD SCH (10:19)
[2020-07-12] MEDS: ATORVASTATIN CA 10 MG TABLET (FP) PO SCH (10:19)
[2020-07-12] MEDS: PRENATAL VITAMINS W/ FOLIC ACID TABLET (FP) PO SCH (10:19)
[2020-07-12] MEDS: LISINOPRIL 20 MG TABLET (FP) PO SCH (10:19)
[2020-07-12] MEDS: NICOTINE POLACRILEX 2 MG GUM BUC PRN (10:20)
[2020-07-12] MEDS: MELATONIN 5 MG TABLETS PO SCH (21:41)
[2020-07-12] MEDS: THIAMINE HCL 100 MG TABLET (FP) PO SCH (21:42)
[2020-07-13] MEDS ORDERED: METHADONE HCL 10 MG TABLET ONE (03:57)
[2020-07-13] MEDS ORDERED: METHADONE HCL 40 MG DISPERSABLE TABLET ONE (03:57)
[2020-07-13] MEDS: METHADONE 120 MG, METHADONE 20 MG PO SCH (06:25)
[2020-07-13] MEDS: BUDESONIDE/FORMETEROL FUMARATE 160/4.5 mcg INHALER IH SCH ×2 (10:31→21:30)
[2020-07-13] MEDS: LISINOPRIL 20 MG TABLET (FP) PO SCH (10:32)
[2020-07-13] MEDS: PRENATAL VITAMINS W/ FOLIC ACID TABLET (FP) PO SCH (10:32)
[2020-07-13] MEDS: NICOTINE 14 MG/24 HOURS TOPICAL PATCH TD SCH (10:32)
[2020-07-13] MEDS: ATORVASTATIN CA 10 MG TABLET (FP) PO SCH (10:32)
[2020-07-13] MEDS: NICOTINE POLACRILEX 2 MG GUM BUC PRN ×2 (10:34→21:31)
[2020-07-13] MEDS: MELATONIN 5 MG TABLETS PO SCH (21:29)
[2020-07-13] MEDS: THIAMINE HCL 100 MG TABLET (FP) PO SCH (21:30)
[2020-07-14] MEDS ORDERED: METHADONE HCL 10 MG TABLET ONE (03:46)
[2020-07-14] MEDS ORDERED: METHADONE HCL 40 MG DISPERSABLE TABLET ONE (03:46)
[2020-07-14] MEDS: METHADONE 120 MG, METHADONE 20 MG PO SCH (06:12)
[2020-07-14] MEDS: LISINOPRIL 20 MG TABLET (FP) PO SCH (10:17)
[2020-07-14] MEDS: ATORVASTATIN CA 10 MG TABLET (FP) PO SCH (10:17)
[2020-07-14] MEDS: PRENATAL VITAMINS W/ FOLIC ACID TABLET (FP) PO SCH (10:17)
[2020-07-14] MEDS: BUDESONIDE/FORMETEROL FUMARATE 160/4.5 mcg INHALER IH SCH ×2 (10:17→21:24)
[2020-07-14] MEDS: NICOTINE 14 MG/24 HOURS TOPICAL PATCH TD SCH (10:17)
[2020-07-14] MEDS: NICOTINE POLACRILEX 2 MG GUM BUC PRN ×2 (10:34→21:24)
--- NOTE | 2020-07-14 13:48 | PN ---
[facility] Progress Note Note: c/o insomnia per nurse's report. wants increased sleeping aid. Vital Signs - 24 hr 07/13/20 07/14/20 20:31 06:03 Temperature 97.3 F L Pulse Rate 49 L Respiratory 18 Rate Blood Pressure 146/78 O2 Sat by Pulse 96 97 Oximetry (%) Laboratory Tests 07/09/20 07/09/20 07/09/20 14:20 14:20 14:20 WBC 5.5 RBC 4.60 Hgb 13.4 Hct 40.9 MCV 88.9 MCH 29.1 MCHC 32.7 RDW 13.5 Plt Count 183 MPV 9.8 Sickle Cell Screen Negative Sodium 141 Potassium 4.3 Chloride 106 Carbon Dioxide 26 Anion Gap 8 BUN 17.6 Creatinine 1.0 Est GFR (CKD-EPI)AfAm 95.73 Est GFR (CKD-EPI)NonAf 82.60 Random Glucose 109 H Calcium 9.1 Total Bilirubin 0.8 AST 87 H ALT 44 Alkaline Phosphatase 53 Total Protein 7.6 Albumin 3.6 Urine Color Urine Appearance Urine pH Ur Specific [place] Urine Protein Urine Glucose (UA) Urine Ketones Urine Blood Urine Nitrite Urine Bilirubin Urine Urobilinogen Ur Leukocyte Esterase Syphilis Serology Non-reactive HIV Ag/Ab Combo Qual 07/09/20 07/11/20 14:20 08:20 WBC RBC Hgb Hct MCV MCH MCHC RDW Plt Count MPV Sickle Cell Screen Sodium Potassium Chloride Carbon Dioxide Anion Gap BUN Creatinine Est GFR (CKD-EPI)AfAm Est GFR (CKD-EPI)NonAf Random Glucose Calcium Total Bilirubin AST ALT Alkaline Phosphatase Total Protein Albumin Urine Color Yellow Urine Appearance Clear Urine pH 5.0 Ur Specific [place] 1.010 Urine Protein Negative Urine Glucose (UA) Negative Urine Ketones Negative Urine Blood Negative Urine Nitrite Negative Urine Bilirubin Negative Urine Urobilinogen 0.2 Ur Leukocyte Esterase Negative Syphilis Serology HIV Ag/Ab Combo Qual Negative Alert o x 3 nad oob ambulating with steady gait. insomnia Increase Melatonin 10 mg po HS
[2020-07-14] MEDS: THIAMINE HCL 100 MG TABLET (FP) PO SCH (21:23)
[2020-07-14] MEDS: MELATONIN 5 MG TABLETS PO SCH (21:23)
[2020-07-15] MEDS ORDERED: METHADONE HCL 10 MG TABLET ONE (03:41)
[2020-07-15] MEDS ORDERED: METHADONE HCL 40 MG DISPERSABLE TABLET ONE (03:42)
[2020-07-15] MEDS: METHADONE 120 MG, METHADONE 20 MG PO SCH (06:07)
[2020-07-15] MEDS: LISINOPRIL 20 MG TABLET (FP) PO SCH (10:34)
[2020-07-15] MEDS: BUDESONIDE/FORMETEROL FUMARATE 160/4.5 mcg INHALER IH SCH ×2 (10:34→21:16)
[2020-07-15] MEDS: ATORVASTATIN CA 10 MG TABLET (FP) PO SCH (10:34)
[2020-07-15] MEDS: PRENATAL VITAMINS W/ FOLIC ACID TABLET (FP) PO SCH (10:35)
[2020-07-15] MEDS: NICOTINE 14 MG/24 HOURS TOPICAL PATCH TD SCH (10:35)
[2020-07-15] MEDS: NICOTINE POLACRILEX 2 MG GUM BUC PRN (10:35)
[2020-07-15] MEDS: THIAMINE HCL 100 MG TABLET (FP) PO SCH (21:15)
[2020-07-15] MEDS: MELATONIN 5 MG TABLETS PO SCH (21:15)
[2020-07-16] MEDS ORDERED: METHADONE HCL 10 MG TABLET ONE (06:05)
[2020-07-16] MEDS ORDERED: METHADONE HCL 40 MG DISPERSABLE TABLET ONE (06:05)
[2020-07-16] MEDS: METHADONE 120 MG, METHADONE 20 MG PO SCH (06:05)
[2020-07-16] MEDS: NICOTINE POLACRILEX 2 MG GUM BUC PRN ×4 (07:43→21:59)
[2020-07-16] MEDS: LISINOPRIL 20 MG TABLET (FP) PO SCH (10:39)
[2020-07-16] MEDS: BUDESONIDE/FORMETEROL FUMARATE 160/4.5 mcg INHALER IH SCH ×2 (10:39→21:58)
[2020-07-16] MEDS: NICOTINE 14 MG/24 HOURS TOPICAL PATCH TD SCH (10:40)
[2020-07-16] MEDS: ATORVASTATIN CA 10 MG TABLET (FP) PO SCH (10:40)
[2020-07-16] MEDS: PRENATAL VITAMINS W/ FOLIC ACID TABLET (FP) PO SCH (10:40)
[2020-07-16] MEDS: THIAMINE HCL 100 MG TABLET (FP) PO SCH (21:58)
[2020-07-16] MEDS: MELATONIN 5 MG TABLETS PO SCH (21:58)
[2020-07-17] MEDS ORDERED: METHADONE HCL 40 MG DISPERSABLE TABLET ONE (05:08)
[2020-07-17] MEDS ORDERED: METHADONE HCL 10 MG TABLET ONE (05:08)
[2020-07-17] MEDS: METHADONE 120 MG, METHADONE 20 MG PO SCH (06:01)
[2020-07-17] MEDS: NICOTINE POLACRILEX 2 MG GUM BUC PRN ×3 (06:04→21:18)
[2020-07-17] MEDS: BUDESONIDE/FORMETEROL FUMARATE 160/4.5 mcg INHALER IH SCH ×2 (09:47→21:18)
[2020-07-17] MEDS: LISINOPRIL 20 MG TABLET (FP) PO SCH (09:47)
[2020-07-17] MEDS: ATORVASTATIN CA 10 MG TABLET (FP) PO SCH (09:47)
[2020-07-17] MEDS: PRENATAL VITAMINS W/ FOLIC ACID TABLET (FP) PO SCH (09:48)
[2020-07-17] MEDS: NICOTINE 14 MG/24 HOURS TOPICAL PATCH TD SCH (09:48)
[2020-07-17] MEDS: MELATONIN 5 MG TABLETS PO SCH (21:18)
[2020-07-17] MEDS: THIAMINE HCL 100 MG TABLET (FP) PO SCH (21:18)
[2020-07-18] MEDS ORDERED: METHADONE HCL 10 MG TABLET ONE (05:37)
[2020-07-18] MEDS ORDERED: METHADONE HCL 40 MG DISPERSABLE TABLET ONE (05:38)
[2020-07-18] MEDS: METHADONE 120 MG, METHADONE 20 MG PO SCH (06:05)
[2020-07-18] MEDS: NICOTINE POLACRILEX 2 MG GUM BUC PRN ×3 (06:08→21:28)
[2020-07-18] MEDS: BUDESONIDE/FORMETEROL FUMARATE 160/4.5 mcg INHALER IH SCH ×2 (09:41→21:27)
[2020-07-18] MEDS: NICOTINE 14 MG/24 HOURS TOPICAL PATCH TD SCH (09:41)
[2020-07-18] MEDS: LISINOPRIL 20 MG TABLET (FP) PO SCH (09:41)
[2020-07-18] MEDS: ATORVASTATIN CA 10 MG TABLET (FP) PO SCH (09:41)
[2020-07-18] MEDS: PRENATAL VITAMINS W/ FOLIC ACID TABLET (FP) PO SCH (09:41)
[2020-07-18] MEDS: THIAMINE HCL 100 MG TABLET (FP) PO SCH (21:28)
[2020-07-18] MEDS: MELATONIN 5 MG TABLETS PO SCH (21:28)
[2020-07-19] MEDS ORDERED: METHADONE HCL 10 MG TABLET ONE (03:10)
[2020-07-19] MEDS ORDERED: METHADONE HCL 40 MG DISPERSABLE TABLET ONE (03:10)
[2020-07-19] MEDS: METHADONE 120 MG, METHADONE 20 MG PO SCH (06:13)
[2020-07-19] MEDS: NICOTINE POLACRILEX 2 MG GUM BUC PRN ×4 (06:15→21:22)
[2020-07-19] MEDS: PRENATAL VITAMINS W/ FOLIC ACID TABLET (FP) PO SCH (09:49)
[2020-07-19] MEDS: NICOTINE 14 MG/24 HOURS TOPICAL PATCH TD SCH (09:49)
[2020-07-19] MEDS: ATORVASTATIN CA 10 MG TABLET (FP) PO SCH (09:49)
[2020-07-19] MEDS: LISINOPRIL 20 MG TABLET (FP) PO SCH (09:49)
[2020-07-19] MEDS: BUDESONIDE/FORMETEROL FUMARATE 160/4.5 mcg INHALER IH SCH ×2 (09:50→21:21)
[2020-07-19] MEDS: MELATONIN 5 MG TABLETS PO SCH (21:21)
[2020-07-19] MEDS: THIAMINE HCL 100 MG TABLET (FP) PO SCH (21:21)
[2020-07-20] MEDS ORDERED: METHADONE HCL 40 MG DISPERSABLE TABLET ONE (03:28)
[2020-07-20] MEDS ORDERED: METHADONE HCL 10 MG TABLET ONE (03:28)
[2020-07-20] MEDS: METHADONE 120 MG, METHADONE 20 MG PO SCH (06:04)
[2020-07-20] MEDS: NICOTINE POLACRILEX 2 MG GUM BUC PRN ×2 (06:05→21:12)
[2020-07-20] MEDS: NICOTINE 14 MG/24 HOURS TOPICAL PATCH TD SCH (10:14)
[2020-07-20] MEDS: LISINOPRIL 20 MG TABLET (FP) PO SCH (10:14)
[2020-07-20] MEDS: ATORVASTATIN CA 10 MG TABLET (FP) PO SCH (10:14)
[2020-07-20] MEDS: PRENATAL VITAMINS W/ FOLIC ACID TABLET (FP) PO SCH (10:14)
[2020-07-20] MEDS: BUDESONIDE/FORMETEROL FUMARATE 160/4.5 mcg INHALER IH SCH ×2 (10:14→21:10)
[2020-07-20] MEDS: MELATONIN 5 MG TABLETS PO SCH (21:11)
[2020-07-20] MEDS: THIAMINE HCL 100 MG TABLET (FP) PO SCH (21:11)
[2020-07-21] MEDS ORDERED: METHADONE HCL 10 MG TABLET ONE (03:42)
[2020-07-21] MEDS ORDERED: METHADONE HCL 40 MG DISPERSABLE TABLET ONE (03:43)
[2020-07-21] MEDS: METHADONE 120 MG, METHADONE 20 MG PO SCH (06:11)
[2020-07-21] MEDS: NICOTINE POLACRILEX 2 MG GUM BUC PRN ×3 (06:13→21:13)
[2020-07-21] MEDS: BUDESONIDE/FORMETEROL FUMARATE 160/4.5 mcg INHALER IH SCH ×2 (10:25→21:12)
[2020-07-21] MEDS: PRENATAL VITAMINS W/ FOLIC ACID TABLET (FP) PO SCH (10:25)
[2020-07-21] MEDS: LISINOPRIL 20 MG TABLET (FP) PO SCH (10:25)
[2020-07-21] MEDS: NICOTINE 14 MG/24 HOURS TOPICAL PATCH TD SCH (10:25)
[2020-07-21] MEDS: ATORVASTATIN CA 10 MG TABLET (FP) PO SCH (10:25)
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
[2020-07-21] MEDS: THIAMINE HCL 100 MG TABLET (FP) PO SCH (21:13)
[2020-07-21] MEDS: SUVOREXANT 10 MG TABLET PO PRN (21:13)
[2020-07-22] MEDS ORDERED: METHADONE HCL 10 MG TABLET ONE (05:58)
[2020-07-22] MEDS ORDERED: METHADONE HCL 40 MG DISPERSABLE TABLET ONE (05:59)
[2020-07-22] MEDS: METHADONE 120 MG, METHADONE 20 MG PO SCH (06:28)
[2020-07-22] MEDS: NICOTINE POLACRILEX 2 MG GUM BUC PRN ×4 (06:31→21:50)
[2020-07-22] MEDS: ATORVASTATIN CA 10 MG TABLET (FP) PO SCH (10:12)
[2020-07-22] MEDS: LISINOPRIL 20 MG TABLET (FP) PO SCH (10:12)
[2020-07-22] MEDS: BUDESONIDE/FORMETEROL FUMARATE 160/4.5 mcg INHALER IH SCH ×2 (10:12→21:47)
[2020-07-22] MEDS: PRENATAL VITAMINS W/ FOLIC ACID TABLET (FP) PO SCH (10:13)
[2020-07-22] MEDS: NICOTINE 14 MG/24 HOURS TOPICAL PATCH TD SCH (10:13)
[2020-07-22] MEDS: THIAMINE HCL 100 MG TABLET (FP) PO SCH (21:47)
[2020-07-22] MEDS ORDERED: MELATONIN 5 MG TABLETS PO PRN (22:36)
[2020-07-23] MEDS ORDERED: METHADONE HCL 10 MG TABLET ONE (06:05)
[2020-07-23] MEDS ORDERED: METHADONE HCL 40 MG DISPERSABLE TABLET ONE (06:06)
[2020-07-23] MEDS: METHADONE 120 MG, METHADONE 20 MG PO SCH (06:06)
[2020-07-23] MEDS: NICOTINE POLACRILEX 2 MG GUM BUC PRN ×4 (07:36→21:19)
[2020-07-23] MEDS: PRENATAL VITAMINS W/ FOLIC ACID TABLET (FP) PO SCH (09:46)
[2020-07-23] MEDS: LISINOPRIL 20 MG TABLET (FP) PO SCH (09:46)
[2020-07-23] MEDS: ATORVASTATIN CA 10 MG TABLET (FP) PO SCH (09:46)
[2020-07-23] MEDS: NICOTINE 14 MG/24 HOURS TOPICAL PATCH TD SCH (09:46)
[2020-07-23] MEDS: BUDESONIDE/FORMETEROL FUMARATE 160/4.5 mcg INHALER IH SCH ×2 (09:48→21:18)
[2020-07-23] MEDS: SUVOREXANT 10 MG TABLET PO PRN (21:18)
[2020-07-23] MEDS: THIAMINE HCL 100 MG TABLET (FP) PO SCH (21:18)
[2020-07-24] MEDS ORDERED: METHADONE HCL 40 MG DISPERSABLE TABLET ONE (02:53)
[2020-07-24] MEDS ORDERED: METHADONE HCL 10 MG TABLET ONE (02:53)
[2020-07-24] MEDS: METHADONE 120 MG, METHADONE 20 MG PO SCH (06:12)
[2020-07-24] MEDS: NICOTINE POLACRILEX 2 MG GUM BUC PRN ×3 (07:12→21:37)
[2020-07-24] MEDS: BUDESONIDE/FORMETEROL FUMARATE 160/4.5 mcg INHALER IH SCH ×2 (09:45→21:26)
[2020-07-24] MEDS: LISINOPRIL 20 MG TABLET (FP) PO SCH (09:45)
[2020-07-24] MEDS: ATORVASTATIN CA 10 MG TABLET (FP) PO SCH (09:45)
[2020-07-24] MEDS: NICOTINE 14 MG/24 HOURS TOPICAL PATCH TD SCH (09:46)
[2020-07-24] MEDS: PRENATAL VITAMINS W/ FOLIC ACID TABLET (FP) PO SCH (09:46)
--- NOTE | 2020-07-24 15:14 | PN ---
[facility] Progress Note Note: Psychiatry Attending's note : RN Ms Burgess called for renewal of belsomra. Chart reviewed. Dr Nicole's note of 07/21/20 : read. Medication is confirmed. Patient is still in agreement. No adverse effects. Belsomra 10 mg po hs prn. Order renewed.
[2020-07-24] MEDS: SUVOREXANT 10 MG TABLET PO PRN (21:25)
[2020-07-24] MEDS: THIAMINE HCL 100 MG TABLET (FP) PO SCH (21:25)
[2020-07-25] MEDS ORDERED: METHADONE HCL 40 MG DISPERSABLE TABLET ONE (04:15)
[2020-07-25] MEDS ORDERED: METHADONE HCL 10 MG TABLET ONE (04:15)
[2020-07-25] MEDS: METHADONE 120 MG, METHADONE 20 MG PO SCH (06:12)
[2020-07-25] MEDS: NICOTINE POLACRILEX 2 MG GUM BUC PRN ×3 (06:14→21:24)
[2020-07-25] MEDS: BUDESONIDE/FORMETEROL FUMARATE 160/4.5 mcg INHALER IH SCH ×2 (09:52→21:22)
[2020-07-25] MEDS: ATORVASTATIN CA 10 MG TABLET (FP) PO SCH (09:53)
[2020-07-25] MEDS: LISINOPRIL 20 MG TABLET (FP) PO SCH (09:53)
[2020-07-25] MEDS: PRENATAL VITAMINS W/ FOLIC ACID TABLET (FP) PO SCH (09:53)
[2020-07-25] MEDS: NICOTINE 14 MG/24 HOURS TOPICAL PATCH TD SCH (09:53)
[2020-07-25] MEDS: THIAMINE HCL 100 MG TABLET (FP) PO SCH (21:22)
[2020-07-25] MEDS: SUVOREXANT 10 MG TABLET PO PRN (21:23)
[2020-07-26] MEDS ORDERED: METHADONE HCL 10 MG TABLET ONE (04:06)
[2020-07-26] MEDS ORDERED: METHADONE HCL 40 MG DISPERSABLE TABLET ONE (04:07)
[2020-07-26] MEDS: METHADONE 120 MG, METHADONE 20 MG PO SCH (06:16)
[2020-07-26] MEDS: NICOTINE POLACRILEX 2 MG GUM BUC PRN ×4 (06:19→21:26)
[2020-07-26] MEDS: NICOTINE 14 MG/24 HOURS TOPICAL PATCH TD SCH (10:02)
[2020-07-26] MEDS: PRENATAL VITAMINS W/ FOLIC ACID TABLET (FP) PO SCH (10:02)
[2020-07-26] MEDS: ATORVASTATIN CA 10 MG TABLET (FP) PO SCH (10:02)
[2020-07-26] MEDS: BUDESONIDE/FORMETEROL FUMARATE 160/4.5 mcg INHALER IH SCH ×2 (10:02→21:25)
[2020-07-26] MEDS: LISINOPRIL 20 MG TABLET (FP) PO SCH (10:02)
[2020-07-26] MEDS: THIAMINE HCL 100 MG TABLET (FP) PO SCH (21:25)
[2020-07-26] MEDS: SUVOREXANT 10 MG TABLET PO PRN (21:25)
[2020-07-27] MEDS ORDERED: METHADONE HCL 40 MG DISPERSABLE TABLET ONE (03:22)
[2020-07-27] MEDS ORDERED: METHADONE HCL 10 MG TABLET ONE (03:22)
[2020-07-27] MEDS: METHADONE 120 MG, METHADONE 20 MG PO SCH (06:25)
[2020-07-27] MEDS: NICOTINE POLACRILEX 2 MG GUM BUC PRN ×3 (06:27→21:18)
[2020-07-27] MEDS: BUDESONIDE/FORMETEROL FUMARATE 160/4.5 mcg INHALER IH SCH ×2 (10:36→21:17)
[2020-07-27] MEDS: PRENATAL VITAMINS W/ FOLIC ACID TABLET (FP) PO SCH (10:37)
[2020-07-27] MEDS: ATORVASTATIN CA 10 MG TABLET (FP) PO SCH (10:37)
[2020-07-27] MEDS: NICOTINE 14 MG/24 HOURS TOPICAL PATCH TD SCH (10:37)
[2020-07-27] MEDS: LISINOPRIL 20 MG TABLET (FP) PO SCH (10:37)
[2020-07-27] MEDS: THIAMINE HCL 100 MG TABLET (FP) PO SCH (21:17)
[2020-07-27] MEDS: SUVOREXANT 10 MG TABLET PO PRN (21:17)
[2020-07-28] MEDS ORDERED: METHADONE HCL 10 MG TABLET ONE (03:29)
[2020-07-28] MEDS ORDERED: METHADONE HCL 40 MG DISPERSABLE TABLET ONE (03:29)
[2020-07-28] MEDS: METHADONE 120 MG, METHADONE 20 MG PO SCH (06:10)
[2020-07-28] MEDS: NICOTINE POLACRILEX 2 MG GUM BUC PRN ×2 (06:12→09:39)
[2020-07-28 06:52] VITALS: TEMP 98.2
--- NOTE | 2020-07-28 08:50 | DS ---
[facility] Rehab Discharge Summary - [facility] Rehab Discharge Summary Admission Date: 07/09/20 Discharge Date: 07/28/20 - History Present History: Alcohol dependence, Cocaine dependence, MMTP Pertinent Past History: Asthma HTN Dislipidemia Hep C - Discharge Physical Exam Vital Signs: Vital Signs Temperature 98.2 F 07/28/20 06:05 Pulse Rate 47 L 07/28/20 06:05 Respiratory Rate 18 07/28/20 06:05 Blood Pressure 182/79 H 07/28/20 06:05 O2 Sat by Pulse Oximetry (%) 97 07/28/20 06:05 General:WDWN male. alert o x 3, coherent Cardiac:s1 s2,rrr lungs:ctab abdomen:soft,+bs,nt,nd MSK/Skin:oob ambulating with steady gait;Active ROM, all limbs,no edema,skin intact. Pertinent Admission Physical Exam Findings: Laboratory Tests 07/09/20 07/09/20 07/09/20 14:20 14:20 14:20 WBC 5.5 RBC 4.60 Hgb 13.4 Hct 40.9 MCV 88.9 MCH 29.1 MCHC 32.7 RDW 13.5 Plt Count 183 MPV 9.8 Sickle Cell Screen Negative Sodium 141 Potassium 4.3 Chloride 106 Carbon Dioxide 26 Anion Gap 8 BUN 17.6 Creatinine 1.0 Est GFR (CKD-EPI)AfAm 95.73 Est GFR (CKD-EPI)NonAf 82.60 Random Glucose 109 H Calcium 9.1 Total Bilirubin 0.8 AST 87 H ALT 44 Alkaline Phosphatase 53 Total Protein 7.6 Albumin 3.6 Urine Color Urine Appearance Urine pH Ur Specific [place] Urine Protein Urine Glucose (UA) Urine Ketones Urine Blood Urine Nitrite Urine Bilirubin Urine Urobilinogen Ur Leukocyte Esterase Syphilis Serology Non-reactive HIV Ag/Ab Combo Qual 07/09/20 07/11/20 14:20 08:20 WBC RBC Hgb Hct MCV MCH MCHC RDW Plt Count MPV Sickle Cell Screen Sodium Potassium Chloride Carbon Dioxide Anion Gap BUN Creatinine Est GFR (CKD-EPI)AfAm Est GFR (CKD-EPI)NonAf Random Glucose Calcium Total Bilirubin AST ALT Alkaline Phosphatase Total Protein Albumin Urine Color Yellow Urine Appearance Clear Urine pH 5.0 Ur Specific [place] 1.010 Urine Protein Negative Urine Glucose (UA) Negative Urine Ketones Negative Urine Blood Negative Urine Nitrite Negative Urine Bilirubin Negative Urine Urobilinogen 0.2 Ur Leukocyte Esterase Negative Syphilis Serology HIV Ag/Ab Combo Qual Negative covid (-) result on 07/07/20 as per initial admission documents. - Treatment Discharge Condition: Discharge condition good, Rehabilitated safely, Responded well, Outpatient referral accepted Hospital Course: Pt accepted CD aftercare to [facility] - Medication Discharge Medications: Ambulatory Orders Atorvastatin Calcium 10 mg PO DAILY 06/30/20 Multivit,Calc,Mins/Iron/Folic [Therapeutic-M Tablet] 1 tablet PO DAILY 06/30/20 Albuterol Sulfate Inhaler - [Ventolin HFA Inhaler -] 2 inhaler PO Q4HWA PRN #1 inhaler 07/04/20 Budesonide/Formeterol Fumarate [SYMBICORT 160/4.5mcg -] 1 inhaler PO BID #1 inhaler 07/04/20 Lisinopril [Prinivil -] 40 mg PO DAILY #14 tablet 07/04/20 Amlodipine Besylate [Norvasc -] 5 mg PO DAILY 07/09/20 - Medication-Assisted Treatment (MAT) Medication-Assisted Treatment (MAT): No - Discharge Instructions Diet, activity, other medical instructions: Diet:ALCIRA Activity:oob ad chris Other medical instructions:follow up with primary care and CD aftercare as scheduled. - Diagnosis (1) Alcohol dependence Status: Chronic Qualifiers: Substance use status: uncomplicated Qualified Code(s): F10.20 - Alcohol dependence, uncomplicated (2) Cocaine dependence Status: Chronic Qualifiers: Substance use status: uncomplicated Qualified Code(s): F14.20 - Cocaine dependence, uncomplicated (3) HTN (hypertension) Status: Chronic Qualifiers: Hypertension type: essential hypertension Qualified Code(s): I10 - Essential (primary) hypertension (4) History of asthma Status: Chronic (5) IVDU (intravenous drug user) Status: Chronic (6) Methadone maintenance therapy patient Status: Chronic (7) Nicotine dependence Status: Chronic Qualifiers: Nicotine product type: cigarettes Substance use status: uncomplicated Qualified Code(s): F17.210 - Nicotine dependence, cigarettes, uncomplicated (8) Hepatitis C Status: Resolved - Follow-up Referral Minutes to complete discharge: 30 - AMA Did Patient Leave Against Medical Advice: No Additional Comments: Pt reports he has own medications in his property and has no need for courtesy RX today. Also stated that he has more refills at his pharmacy to be picked up by his significant other to bring to him at the program if needed. Pt's medications were confirmed to be at the [facility] for [facility].
[2020-07-28 09:19] VITALS: BP 150/74; PULSE 54
[2020-07-28] MEDS: BUDESONIDE/FORMETEROL FUMARATE 160/4.5 mcg INHALER IH SCH (09:38)
[2020-07-28] MEDS: NICOTINE 14 MG/24 HOURS TOPICAL PATCH TD SCH (09:39)
[2020-07-28] MEDS: ATORVASTATIN CA 10 MG TABLET (FP) PO SCH (09:39)
[2020-07-28] MEDS: LISINOPRIL 20 MG TABLET (FP) PO SCH (09:39)
[2020-07-28] MEDS: PRENATAL VITAMINS W/ FOLIC ACID TABLET (FP) PO SCH (09:39)
== END 2020-07-28 09:56 | disposition home or self-care (01) | DRG 772 ==
LOC: YASAS 11:49 → Y6N 13:51 → UNDOADMIN 13:51 → Y5N 14:12
PROVIDERS: ADMIT Allergy & Immunology; ATTEND Allergy & Immunology
PROC: HZ42ZZZ Group Counseling for Substance Abuse Treatment, Cognitive-Behavioral (ICD-10-PCS; principal; 2020-07-09)
DX: F10.20 Alcohol dependence, uncomplicated (principal); F11.20 Opioid dependence, uncomplicated; F14.20 Cocaine dependence, uncomplicated; F17.210 Nicotine dependence, cigarettes, uncomplicated; F19.282 Other psychoactive substance dependence with psychoactive substance-induced sleep disorder; F19.24 Other psychoactive substance dependence with psychoactive substance-induced mood disorder; I25.10 Atherosclerotic heart disease of native coronary artery without angina pectoris; I10 Essential (primary) hypertension; R00.1 Bradycardia, unspecified; J44.9 Chronic obstructive pulmonary disease, unspecified; J45.998 Other asthma; G47.00 Insomnia, unspecified; Z62.810 Personal history of physical and sexual abuse in childhood; Z86.69 Personal history of other diseases of the nervous system and sense organs; Z59.0 Homelessness; Z56.0 Unemployment, unspecified
CPT/HCPCS: 36415; 80053; 81003; 85027; 85660; 86780; 87389

== ENCOUNTER 2020-11-02 13:59 | Inpatient (IN) | payer OTHER ==
[2020-11-02] MEDS ORDERED: MAGNESIUM CITRATE 300 ML BOTTLE PO PRN (15:49)
[2020-11-02] MEDS ORDERED: ONDANSETRON *ODT* 4 MG TABLET SL PRN (15:49)
[2020-11-02] MEDS ORDERED: BISMUTH SUBSALICYLATE 524 MG/30 ML UD PO PRN (15:49)
[2020-11-02] MEDS ORDERED: ACETAMINOPHEN 325 MG TABLET (FP) PO PRN ×2 (15:49)
[2020-11-02] MEDS ORDERED: MENTHOL/PHENOL 1 EACH UD MM PRN (15:49)
[2020-11-02] MEDS ORDERED: LORazepam 1 MG TABLET PO PRN (15:49)
[2020-11-02] MEDS ORDERED: IBUPROFEN 400 MG TABLET (FP) PO PRN (15:49)
[2020-11-02] MEDS ORDERED: METHOCARBAMOL 500 MG TABLET PO PRN (15:49)
[2020-11-02] MEDS ORDERED: MAG HYDROX/AL HYDROX/SIMETH 30 ML UNIT-DOSE CUP PO PRN (15:49)
[2020-11-02] MEDS ORDERED: MAGNESIUM HYDROX 2400MG/30ML ORAL SUSPENSION 30 ML CUP PO PRN (15:49)
[2020-11-02 17:25] VITALS: BMI 25.4
[2020-11-02] MEDS: LORazepam 2 MG TABLET PO SCH ×2 (18:14→22:19)
[2020-11-02] MEDS: hydrOXYzine PAMOATE 25 MG CAPSULE (FP) PO SCH ×2 (18:14→22:19)
[2020-11-02] MEDS: NICOTINE 14 MG/24 HOURS TOPICAL PATCH TD SCH (18:16)
[2020-11-02] MEDS: THIAMINE HCL 100 MG TABLET (FP) PO SCH (22:19)
[2020-11-02] MEDS: MELATONIN 5 MG TABLETS PO SCH (22:20)
[2020-11-02] MEDS: NICOTINE POLACRILEX 2 MG GUM BUC PRN (22:21)
[2020-11-03] MEDS: LORazepam 2 MG TABLET PO SCH ×4 (05:49→22:39)
[2020-11-03] MEDS: hydrOXYzine PAMOATE 25 MG CAPSULE (FP) PO SCH ×5 (05:49→23:21)
[2020-11-03] MEDS: NICOTINE POLACRILEX 2 MG GUM BUC PRN ×2 (05:51→22:41)
[2020-11-03] MEDS ORDERED: ALBUTEROL SO4 HFA INHALER IH PRN ×2 (09:49→10:27)
[2020-11-03] MEDS ORDERED: BUDESONIDE/FORMETEROL FUMARATE 160/4.5 mcg INHALER IH SCH (10:00)
[2020-11-03] MEDS ORDERED: METHADONE 120 MG, METHADONE 20 MG PO ONE (10:00)
[2020-11-03] MEDS ORDERED: METHADONE HCL 10 MG TABLET PO ONE (10:00)
[2020-11-03] MEDS ORDERED: PATIENT'S OWN MEDICATION (NON-FORMULARY) (Lisinopril [Prinivil -] 40 MG Tablet) PO SCH (10:00)
[2020-11-03] MEDS ORDERED: PATIENT'S OWN MEDICATION (NON-FORMULARY) (Lisinopril [Prinivil -] 40 MG) PO SCH (10:00)
[2020-11-03] MEDS ORDERED: METHADONE HCL 10 MG TABLET ONE (10:21)
[2020-11-03] MEDS ORDERED: METHADONE HCL 40 MG DISPERSABLE TABLET ONE (10:22)
[2020-11-03] MEDS: LISINOPRIL 20 MG TABLET PO SCH ×2 (10:28→22:38)
[2020-11-03] MEDS: amLODIPine BESYLATE 5 MG TABLET (FP) PO SCH (10:28)
[2020-11-03] MEDS: PRENATAL VITAMINS W/ FOLIC ACID TABLET (FP) PO SCH (10:30)
[2020-11-03] MEDS: NICOTINE 14 MG/24 HOURS TOPICAL PATCH TD SCH (10:32)
[2020-11-03 13:10] LABS: HEMATOCRIT 40.7 % (35.4-49); HEMOGLOBIN 13.7 GM/dL (11.7-16.9); MCH 30.8 pg (25.7-33.7); MCHC 33.7 g/dl (32.0-35.9); MEAN CELL VOLUME 91.5 fl (80-96); MEAN PLT VOLUME 9.8 fl (7.5-11.1); PLATELET COUNT 160 K/MM3 (134-434); POTASSIUM 3.8 mmol/L (3.5-5.1); RBC 4.44 M/mm3 (4.00-5.60); RDW 12.9 % (11.9-15.9); WHITE BLOOD COUNT 5.9 K/mm3 (4.0-10.0)
[2020-11-03 13:18] LABS: ALBUMIN 3.1 g/dl (3.4-5.0); CALCIUM 8.6 mg/dL (8.5-10.1)
[2020-11-03 13:19] LABS: BLOOD UREA NITROGEN 15.5 mg/dL (7-18)
[2020-11-03 13:22] LABS: BILIRUBIN,TOTAL 0.3 mg/dL (0.2-1); TOT PROT 6.8 g/dl (6.4-8.2)
[2020-11-03] MEDS: THIAMINE HCL 100 MG TABLET (FP) PO SCH (22:38)
[2020-11-03] MEDS: BUDESONIDE/FORMETEROL FUMARATE 160/4.5 mcg INHALER IH SCH (22:38)
[2020-11-03] MEDS: ATORVASTATIN CA 10 MG TABLET (FP) PO SCH (22:38)
[2020-11-03] MEDS: MELATONIN 5 MG TABLETS PO SCH (23:21)
[2020-11-04] MEDS ORDERED: METHADONE HCL 10 MG TABLET ONE (04:55)
[2020-11-04] MEDS ORDERED: METHADONE HCL 40 MG DISPERSABLE TABLET ONE (04:56)
[2020-11-04] MEDS ORDERED: METHADONE HCL 10 MG TABLET PO SCH (06:00)
[2020-11-04] MEDS: METHADONE 120 MG, METHADONE 20 MG PO SCH (06:02)
[2020-11-04] MEDS: hydrOXYzine PAMOATE 25 MG CAPSULE (FP) PO SCH ×5 (06:03→22:10)
[2020-11-04] MEDS: LORazepam 1 MG TABLET PO SCH ×4 (06:03→22:08)
[2020-11-04] MEDS: LISINOPRIL 20 MG TABLET PO SCH ×2 (09:07→22:08)
[2020-11-04] MEDS: PRENATAL VITAMINS W/ FOLIC ACID TABLET (FP) PO SCH (09:07)
[2020-11-04] MEDS: BUDESONIDE/FORMETEROL FUMARATE 160/4.5 mcg INHALER IH SCH ×2 (09:07→22:09)
[2020-11-04] MEDS: amLODIPine BESYLATE 5 MG TABLET (FP) PO SCH (09:07)
[2020-11-04] MEDS: NICOTINE 14 MG/24 HOURS TOPICAL PATCH TD SCH (09:08)
[2020-11-04] MEDS ORDERED: cloNIDine HCL 0.1 MG TABLET PO ONE (12:32)
[2020-11-04] MEDS: NICOTINE POLACRILEX 2 MG GUM BUC PRN ×2 (12:55→18:19)
[2020-11-04] MEDS: MELATONIN 5 MG TABLETS PO SCH (22:08)
[2020-11-04] MEDS: ATORVASTATIN CA 10 MG TABLET (FP) PO SCH (22:08)
[2020-11-04] MEDS: THIAMINE HCL 100 MG TABLET (FP) PO SCH (22:08)
[2020-11-05] MEDS ORDERED: LORazepam 0.5 MG TABLET PO PRN
[2020-11-05] MEDS ORDERED: METHADONE HCL 40 MG DISPERSABLE TABLET ONE (04:54)
[2020-11-05] MEDS ORDERED: METHADONE HCL 10 MG TABLET ONE (04:54)
[2020-11-05] MEDS: hydrOXYzine PAMOATE 25 MG CAPSULE (FP) PO SCH ×5 (06:06→22:17)
[2020-11-05] MEDS: LORazepam 0.5 MG TABLET PO SCH ×4 (06:06→22:13)
[2020-11-05] MEDS: METHADONE 120 MG, METHADONE 20 MG PO SCH (06:06)
[2020-11-05] MEDS: BUDESONIDE/FORMETEROL FUMARATE 160/4.5 mcg INHALER IH SCH ×2 (10:05→22:13)
[2020-11-05] MEDS: PRENATAL VITAMINS W/ FOLIC ACID TABLET (FP) PO SCH (10:05)
[2020-11-05] MEDS: NICOTINE POLACRILEX 2 MG GUM BUC PRN ×2 (10:06→22:16)
[2020-11-05] MEDS: amLODIPine BESYLATE 5 MG TABLET (FP) PO SCH (10:06)
[2020-11-05] MEDS: NICOTINE 14 MG/24 HOURS TOPICAL PATCH TD SCH (10:06)
[2020-11-05] MEDS: LISINOPRIL 20 MG TABLET PO SCH ×2 (10:06→22:13)
[2020-11-05] MEDS: MELATONIN 5 MG TABLETS PO SCH (22:13)
[2020-11-05] MEDS: ATORVASTATIN CA 10 MG TABLET (FP) PO SCH (22:13)
[2020-11-05] MEDS: THIAMINE HCL 100 MG TABLET (FP) PO SCH (22:13)
[2020-11-06] MEDS ORDERED: METHADONE HCL 40 MG DISPERSABLE TABLET ONE (04:35)
[2020-11-06] MEDS ORDERED: METHADONE HCL 10 MG TABLET ONE (04:35)
[2020-11-06] MEDS ORDERED: LORazepam 0.5 MG TABLET PO ONE (05:00)
[2020-11-06] MEDS: hydrOXYzine PAMOATE 25 MG CAPSULE (FP) PO SCH ×5 (06:17→22:03)
[2020-11-06] MEDS: METHADONE 120 MG, METHADONE 20 MG PO SCH (06:17)
[2020-11-06] MEDS: LISINOPRIL 20 MG TABLET PO SCH ×2 (10:08→22:02)
[2020-11-06] MEDS: NICOTINE 14 MG/24 HOURS TOPICAL PATCH TD SCH (10:08)
[2020-11-06] MEDS: BUDESONIDE/FORMETEROL FUMARATE 160/4.5 mcg INHALER IH SCH ×2 (10:08→22:03)
[2020-11-06] MEDS: PRENATAL VITAMINS W/ FOLIC ACID TABLET (FP) PO SCH (10:08)
[2020-11-06] MEDS: amLODIPine BESYLATE 5 MG TABLET (FP) PO SCH (10:08)
[2020-11-06] MEDS: NICOTINE POLACRILEX 2 MG GUM BUC PRN (10:09)
[2020-11-06] MEDS: THIAMINE HCL 100 MG TABLET (FP) PO SCH (22:02)
[2020-11-06] MEDS: MELATONIN 5 MG TABLETS PO SCH (22:02)
[2020-11-06] MEDS: ATORVASTATIN CA 10 MG TABLET (FP) PO SCH (22:02)
[2020-11-07] MEDS ORDERED: METHADONE HCL 10 MG TABLET ONE (04:24)
[2020-11-07] MEDS ORDERED: METHADONE HCL 40 MG DISPERSABLE TABLET ONE (04:25)
[2020-11-07] MEDS: METHADONE 120 MG, METHADONE 20 MG PO SCH (05:47)
[2020-11-07] MEDS: NICOTINE POLACRILEX 2 MG GUM BUC PRN ×2 (05:48→09:08)
[2020-11-07 06:13] VITALS: BP 136/84; PULSE 52; TEMP 97.2
[2020-11-07] MEDS: hydrOXYzine PAMOATE 25 MG CAPSULE (FP) PO SCH ×2 (07:06→09:07)
[2020-11-07] MEDS: amLODIPine BESYLATE 5 MG TABLET (FP) PO SCH (09:06)
[2020-11-07] MEDS: BUDESONIDE/FORMETEROL FUMARATE 160/4.5 mcg INHALER IH SCH (09:06)
[2020-11-07] MEDS: LISINOPRIL 20 MG TABLET PO SCH (09:06)
[2020-11-07] MEDS: PRENATAL VITAMINS W/ FOLIC ACID TABLET (FP) PO SCH (09:06)
[2020-11-07] MEDS: NICOTINE 14 MG/24 HOURS TOPICAL PATCH TD SCH (09:07)
== END 2020-11-07 09:10 | disposition home or self-care (01) | DRG 773 ==
LOC: YASAS 13:59 → Y3N 16:45
PROVIDERS: ADMIT Allergy & Immunology; ATTEND Allergy & Immunology
PROC: HZ2ZZZZ Detoxification Services for Substance Abuse Treatment (ICD-10-PCS; principal; 2020-11-02)
DX: F10.230 Alcohol dependence with withdrawal, uncomplicated (principal); F11.20 Opioid dependence, uncomplicated; F17.210 Nicotine dependence, cigarettes, uncomplicated; F19.24 Other psychoactive substance dependence with psychoactive substance-induced mood disorder; I10 Essential (primary) hypertension; J43.0 Unilateral pulmonary emphysema [MacLeod's syndrome]; J45.909 Unspecified asthma, uncomplicated; E78.5 Hyperlipidemia, unspecified; B18.2 Chronic viral hepatitis C; H91.92 Unspecified hearing loss, left ear; R26.2 Difficulty in walking, not elsewhere classified; Z99.89 Dependence on other enabling machines and devices; Z62.810 Personal history of physical and sexual abuse in childhood; Z59.0 Homelessness
CPT/HCPCS: 36415; 80053; 82947; 82962; 85027; 86780; C9803; J0735; U0003